=== PATIENT | female | born 1950 | race Caucasian/White ===

== ENCOUNTER 2017-01-29 05:14 | Inpatient (IN) | payer OTHER ==
[2017-01-16 11:36] LABS: HEMATOCRIT 42.8 % (37.0-47.0); HEMOGLOBIN 14.2 gm/dL (12.0-15.0); MCH 29.8 pg (26.0-34.0); MCHC 33.3 g/dL (28.0-37.0); MCV 89.4 fL (80.0-100.0); RBC 4.78 mil/uL (4.20-5.00); RDW 13.2 % (10.5-14.5)
[2017-01-16 11:45] LABS: URINE BILIRUBIN NEGATIVE (Negative); URINE BLOOD NEGATIVE (Negative); URINE COLOR YELLOW; URINE GLUCOSE-RANDOM* NEGATIVE (Negative); URINE KETONES NEGATIVE (Negative); URINE LEUKOCYTES-REFLEX NEGATIVE (Negative); URINE PROTEIN (DIPSTICK) NEGATIVE (Negative); URINE UROBILINOGEN 0.2 E.U./dl (0.2-1.0)
[2017-01-16 11:48] LABS: PROTIME 10.3 Seconds (9.3-11.4)
[2017-01-16 11:51] LABS: CALCIUM 9.7 mg/dL (8.5-10.1); CREATININE 0.9 mg/dL (0.6-1.3); POTASSIUM 4.1 mmol/L (3.5-5.1)
[2017-01-29] VITALS (8 sets, daily range): BP systolic 100–147; BP diastolic 51–89
[~2017-01-29] VITALS: Ht 160 cm; Wt 69.1 kg
--- NOTE | ~2017-01-29 | EKG ---
[address] [address] ELECTROCARDIOGRAM REPORT Name: VIVI RAYMOND Room #: PRE IN [facility]#: [id number] Admission: Attend Phys: Fish Rojas MD Discharge: Date of : 46 Report #: [id number] THIS REPORT FOR: //name// [facility] Test Date: 2017-01-16 Test Time: 10:46:29 Pat Name: VIVI RAYMOND Department: Room: Gender: F Product Marketing Executive: Brenda PERALTA : 1950 Requested By: Fish Rojas Order Number: [id number] MD: Paulino Garcia Measurements Intervals [place] Rate: 76 P: -1 TX: 168 QRS: -23 QRSD: 87 T: 19 QT: 372 QTc: 419 Interpretive Statements Sinus rhythm No significant abnormality No previous ECG available for comparison Electronically Signed On 01-17-2017 8:54:12 CRAB PICKER by Paulino Garcia [email or web address] <ELECTRONICALLY SIGNED> By: Paulino Garcia MD, [facility] 01/17/17 0854 1046 1046 Paulino Garcia MD, FACC /EPI
--- NOTE | ~2017-01-29 | O ---
[facility] [place] [address] OPERATIVE REPORT Name: VIVI RAYMOND Room #: 538-P [facility] IN M.R.#: [id number] Admission: 01/29/17 Attend Phys: Fish Rojas MD Discharge: 01/29/17 Date of : 46 Report #: [id number] THIS REPORT FOR: //name// CC: Jose Rojsa DATE OF SERVICE: 01/29/2017 PREOPERATIVE DIAGNOSIS: Right knee medial compartment osteoarthritis. POSTOPERATIVE DIAGNOSIS: Right knee medial compartment osteoarthritis. PROCEDURE: Right unicompartmental knee arthroplasty. SURGEON: Fish Rojas MD. KNITTED GOODS SHAPER: Jasmin Reid PA-C. ANESTHESIA: LMA with an adductor canal block. IMPLANTS: Biomet [place] twin peg Uni knee, size A tibia, size small femur, and size 6 polyethylene. TOURNIQUET TIME: 70 minutes. ESTIMATED BLOOD LOSS: 25 mL. COMPLICATIONS: None. SPECIMENS: None. CONDITION UPON LEAVING THE OPERATING ROOM: Stable. INDICATIONS FOR PROCEDURE: The patient is a 66-year-old female, who has severe right knee medial compartment osteoarthritis. She had failed conservative treatment for this and after discussion with her, she elected for right unicompartmental knee arthroplasty. DESCRIPTION OF PROCEDURE: Risks, benefits, alternatives, and complications were discussed in detail with the patient, including but not limited to risk of anesthesia, risk of damage to nerves, arteries, blood vessels, risk for infection, bleeding, risk for continued knee pain, and need for reoperation. An informed consent was obtained from the patient. Right knee was appropriately marked in the preoperative holding area. She was brought to the operating room and placed in the supine position on operating room table. IV Ancef was given for preoperative antibiotics. An adductor canal block was placed in the holding [address] [address] OPERATIVE REPORT Name: VIVI RAYMOND Room #: 538-P [facility] IN M.R.#: [id number] Admission: 01/29/17 Attend Phys: Fish Rojas MD Discharge: 01/29/17 Date of : 46 Report #: [id number] area by Anesthesia. LMA anesthesia was induced without complication. Tourniquet was placed on the right thigh. Right lower extremity was prepped and draped in normal sterile fashion. A timeout was performed, properly identifying the patient and procedure, as well as the instrumentation and implants. All in the operating room were in agreement. Right lower extremity was exsanguinated, tourniquet was inflated. Tourniquet time was approximately 70 minutes. A standard approach to the medial compartment was made with #10 blade through the skin. Dissection was taken down sharply to the fascia, and deep flaps were developed medially and laterally. Fresh #10 blade was used to make a medial parapatellar arthrotomy, and the knee was inspected. There was severe medial compartmental osteoarthritis. Lateral compartment and patellofemoral compartments were well maintained. Anterior horn of the medial meniscus was removed sharply, and the tibial resection guide was pinned in place and tibial resection was made. This was sized and found to be of size A. The size A trial was placed and the flexion gap was measured as 6. Intramedullary alignment was used, and drill was used to gain access to the canal of the femur, and intramedullary volodymyr was placed. The femoral guide was then placed using the articulating guided to the intramedullary volodymyr. Drill holes for the femoral component were made. After this, the posterior femoral resection was made, and the zero spigot was placed, and the femur was milled. The flexion gap was then checked, and it was 5 and extension gap was 2. The size 3 spigot was placed, and the femur was milled again. This balanced the flexion and extension gaps well. Anterior osteophyte was removed with the drill. The keel cut for the tibia was made and a keeled tibial trial was placed, femoral trial was placed, and then a size 5 trial was placed, found to be somewhat loose, both in flexion and extension. The size 6 trial had a good fit and balance. Trial components were removed. Bony ends were thoroughly irrigated with normal saline. A final size A tibia, size small twin peg [place] femur were cemented in to place using standard cementation techniques. After the cement cured, this was trialed again with a size 6 polyethylene, and found to have a good balance. A final size 6 polyethylene was placed. A periarticular injection consisting of morphine, ropivacaine, Toradol, and epinephrine was placed around the medial soft tissues. Fascia was closed with 0 Vicryl. Skin was closed with 2-0 Vicryl, 3-0 Monocryl, and Dermabond. Soft dressing of Aquacel was applied. The patient tolerated this procedure well and went to the recovery room under the care of anesthesia postoperatively. <ELECTRONICALLY SIGNED> By: Fish Rojas MD 01/31/17 0728 0926 1112 Fish Rojas MD /nt
[~2017-01-29 05:14] MED LIST: ADVIL100 M2 PO; AMBIEN 5 MG TABL5 M1 PO; AMLODIPINE-BEN1 EAC4 PO; ANASPAZ0.125 MG SUBLING; COLACE100 MG PO; COQ10 SG 100 S1 EACH PO; CRANBERRY400 MG PO; DULCOLAX5 MG PO; FENTANYL PA50 MCG/HR TRANSDERM; FLOMAX0.4 MG PO; FLONASE 0.05%50 MCG NASAL; FLONASE16 GM SPRAY; HYDROCHLOROTHIA25 M1 PO; KLOR-CON 1010 MEQ PO; LINZESS290 MCG PO; LOTREL 5-20 MG1 EACH PO; NORCO 10-325 T1 EACH PO; OMEPRAZOLE 20 M20 M1 PO; ONDANSETRON HCL4 M2 PO; OXYCONTIN10 M1 PO; OXYCONTIN20 M1 PO; OXYCONTIN20 MG PO; PRAVACHOL40 MG PO; RESTASIS1 EACH OPHTHALMIC; ROBAXIN 750 MG750 M1 PO; SIMVASTATIN20 MG PO; TOBRADEX ST EYE5 ML OPHTHALMIC; TRAZODONE HCL50 MG PO; VICODIN 5-5001 EACH PO; VICTOZA0.6 MG/0.1 SUBQ; VITAMIN D32000 UNI1 PO; VITAMIN D35000 UNI1 PO; WELLBUTRIN SR150 MG PO; WELLBUTRIN XL150 M1 PO; ZANAFLEX2 M1 PO
[2017-01-29] MEDS ORDERED: PERCOCET PO (14:09)
[2017-01-29] MEDS ORDERED: MS CONTIN15 MG PO (14:09)
[2017-01-29] MEDS ORDERED: NEURONTIN 300300 M1 PO (14:10)
[2017-01-29] MEDS ORDERED: KEFLEX500 MG PO (14:11)
[2017-01-29] MEDS ORDERED: ULTRA-LIGHT RO1 EACH MC (14:11)
== END 2017-01-29 19:09 | disposition home or self-care (01) | DRG 470 ==
LOC: TBA 05:14 → 5S 05:14 → PRE 11:46 → 5S 19:09
PROVIDERS: Orthopaedic Surgery
PROC: 0SRC0J9 Replacement of Right Knee Joint with Synthetic Substitute, Cemented, Open Approach (ICD-10-PCS; principal; 2017-01-29)
DX: M17.11 Unilateral primary osteoarthritis, right knee (principal); I10 Essential (primary) hypertension; E78.00 Pure hypercholesterolemia, unspecified; K21.9 Gastro-esophageal reflux disease without esophagitis; E11.9 Type 2 diabetes mellitus without complications; E78.5 Hyperlipidemia, unspecified; F32.9 Major depressive disorder, single episode, unspecified; Z87.891 Personal history of nicotine dependence; Z90.710 Acquired absence of both cervix and uterus; Z94.7 Corneal transplant status; Z90.49 Acquired absence of other specified parts of digestive tract; Z98.1 Arthrodesis status; Z98.41 Cataract extraction status, right eye
CPT/HCPCS: 10785; 50010; 50101; 50415; 50612; 51130; 51225; 51771; 52056; 54118; 55262; 56528; 57095; 62110; 62900; 70005

== ENCOUNTER → 2017-07-17 | Outpatient (CLI) | payer OTHER ==
[~2017-07-17] VITALS: Ht 160 cm; Wt 69.4 kg
[~2017-07-17] MED LIST changes: +KEFLEX500 MG PO; +MS CONTIN15 MG PO; +NEURONTIN 300300 M1 PO; +PERCOCET PO; +ULTRA-LIGHT RO1 EACH MC; +VENTOLIN HFA 1818 GM INH
== END ==
LOC: GI 06-12 12:54
DX: Z53.09 Procedure and treatment not carried out because of other contraindication (principal)

== ENCOUNTER → 2018-01-01 | Outpatient (CLI) | payer OTHER ==
[~2018-01-01] VITALS: Ht 160 cm; Wt 66.2 kg
[~2018-01-01] MED LIST changes: +DURAGESIC1 EAC1 TRANSDERM; -FENTANYL PA50 MCG/HR TRANSDERM; +PROAIR HFA8.5 GM INH; +WELLBUTRIN XL300 MG PO; +ZETIA10 MG PO
--- NOTE | ~2018-01-01 | P ---
[facility] [place] [address] PROCEDURE REPORT Name: VIVI RAYMOND Room #: [facility]#: [id number] Admission: 01/01/18 Attend Phys: Charan Ovalles Discharge: Date of : 46 Report #: [id number] THIS REPORT FOR: //name// CC: Jose Graham DATE OF SERVICE: 01/01/2018 PROCEDURE PERFORMED: Upper endoscopy with biopsies. HISTORY OF PRESENT ILLNESS: The patient is a 67-year-old female with nausea and weight loss has been ongoing for approximately a month and a half, no new changes in medications. She denies any dysphagia. She does take Prilosec for reflux, which controls heartburn. Bowel movements have been normal. Colonoscopy last year was normal. She does have a spinal stimulator placed. She is on a fentanyl patch as well as multiple other medications. Plan is for upper endoscopy. PROCEDURE: The risks and benefits of the procedure were explained to the patient, those risks including, but not limited to bleeding, perforation, and the risk of sedation. She understood these risks and gave informed consent. Sedation was given using propofol and ketamine per anesthesia. Next, using a standard AptDecon upper endoscope, the scope was placed in the patient's mouth and advanced under direct vision through the esophagus, stomach and into the second portion of the duodenum. The larynx was normal in appearance. The esophagus was normal throughout. The GE junction was normal. Overall, the gastric mucosa was normal in the fundus. In the mid body, there was a small gastric polyp. This was removed with cold forceps, otherwise normal. There was a mild gastritis noted in the gastric antrum, biopsies were obtained to rule out H. pylori. No evidence of ulcerations or erosions. The pylorus was normal and patent. The duodenal bulb, first and second portion were all normal. Biopsies were also obtained to rule out the possibility of celiac sprue. The scope was then withdrawn and the procedure terminated. The patient tolerated the procedure well. IMPRESSION: 1. Mild gastritis. 2. Small gastric polyp. 3. Otherwise, normal upper endoscopy. RECOMMENDATIONS: 1. Await biopsy results. 2. Recommend a trial of Carafate at this time. If there is no improvement and biopsies are negative, we would consider a gastric emptying study as the patient is on narcotics. If this is abnormal, consider promotility agent such as Reglan [address] [address] PROCEDURE REPORT Name: VIVI RAYMOND [id number] Admission: 01/01/18 Attend Phys: Charan Ovalles Discharge: Date of : 46 Report #: [id number] or erythromycin in the future. Thank you for allowing me to participate in her care. <ELECTRONICALLY SIGNED> By: Charan Graham MD 01/06/18 0907 0835 0855 Charan Graham MD /fabiola
--- NOTE | ~2018-01-01 | S ---
[facility] [place] [address] SURGICAL PATH RPT PROCEDURE Name: PATRICIA RAYMOND Room #: REG EVE Leigh.Chris.#: [id number] Admission: 01/01/18 Date of : 46 Discharge: Report #: [id number] Path Case #: [id number] PATHOLOGY REPORT COLLECTION DATE: 01/01/2018 RECEIVED DATE: 01/01/2018 SUBMITTING PHYS: Dr. Charan Graham OTHER PHYS: Dr. Jose Camara SPECIMEN(S) RECEIVED: A.Bx of duodenum R/O sprue B.Bx of gastritis R/O H pylori C.Bx of gastric polyp * * * * * * * * * * * * FINAL DIAGNOSIS: A. "BX of duodenum r/o sprue", biopsy: - Small bowel / duodenal mucosa with mild reactive changes; no evidence of celiac sprue. B. "BX of gastritis r/o H. pylori", biopsy: - Gastric mucosa with mild reactive changes and minimal chronic inflammation. - Negative H. pylori immunohistochemical stain (block B1); control reacted appropriately. - Scant small bowel mucosa also present. C. "BX of gastric polyp", biopsy: - Gastric hyperplastic polyp with xanthomatous / foamy histiocytic inflammation; no dysplasia seen (see comment). (CLW:laurita; 01/02/2018) COMMENT: Properly controlled immunohistochemical and special stains are performed. Block C1 AE1/AE3 no abnormal staining AFB negative for acid fast organisms PAS-DF negative for pathologic organisms PATHOLOGIST: Jen Enciso M.D. REPORT ELECTRONICALLY SIGNED BY: Jen Enciso M.D. DATE/TIME: 01/03/2018 10:38 * * * * * * * * * * * * GROSS PATHOLOGY: A. Received in formalin labeled "Patricia Raymond, BX duodenum, rule out sprue," are 2 segments of james soft tissue measuring 0.9 x 0.3 x [facility] [address] [place] [address] SURGICAL PATH RPT PROCEDURE Name: PATRICIA RAYMOND Room #: [facility].#: [id number] Admission: 01/01/18 Date of : 46 Discharge: Report #: [id number] Path Case #: [id number] 0.3 cm in aggregate dimensions and ranging from 0.4 to 0.5 cm in maximum dimension. The specimen is submitted entirely in cassette A1. B. Received in formalin labeled "JUSTIN Matthews of gastritis, rule out H. pylori," are 3 segments of james soft tissue measuring 1.6 x 0.5 x 0.3 cm in aggregate dimensions and ranging from 0.2 to 0.5 cm in maximum dimension. The specimen is submitted entirely in cassette B1. C. Received in formalin labeled "JUSTIN Matthews of gastric polyp," is a segment of james soft tissue measuring 0.4 cm in maximum dimension. The specimen is submitted entirely in cassette C1. (TSD; 01/01/2018) CLINICAL HISTORY: Pre-OP DX: Abdominal pain Post-OP DX: Gastric polyp INITIAL CPT CODE(S): A; 73633 B; 05666, 70278 C; 54630, 20965, 25666, 32805 Professional services performed by [facility] at [facility] [address], [place] [address] Technical services performed by [facility] at [address] [place] [address], [facility] [address] [address]. [facility] [address] [place] [address] PHONE: [phone] DIRECTOR: Be Kauffman M.D. * * * END OF REPORT * * *
== END | disposition home or self-care (01) ==
LOC: GI 06:30
DX: K31.7 Polyp of stomach and duodenum (principal); K21.9 Gastro-esophageal reflux disease without esophagitis; Z87.891 Personal history of nicotine dependence; J45.909 Unspecified asthma, uncomplicated; I10 Essential (primary) hypertension; E78.5 Hyperlipidemia, unspecified; Z90.710 Acquired absence of both cervix and uterus; Z90.49 Acquired absence of other specified parts of digestive tract; E11.9 Type 2 diabetes mellitus without complications
CPT/HCPCS: 62110; 62900

== ENCOUNTER → 2018-01-10 | Outpatient (CLI) | payer OTHER | LOC: NUC 08:52 | DX: R11.0 Nausea (principal); R63.4 Abnormal weight loss ==

== ENCOUNTER → 2018-04-21 | Outpatient (CLI) | payer OTHER | LOC: RAD 11:38 | DX: M47.894 Other spondylosis, thoracic region (principal); M47.896 Other spondylosis, lumbar region ==

== ENCOUNTER → 2018-10-14 | Outpatient (CLI) | payer OTHER ==
--- NOTE | ~2018-10-14 | EKG ---
[place] [address] [facility] [place] [address] ELECTROCARDIOGRAM REPORT Name: MARIOMARIALUISAVIVI GRIS Room #: REG CLI Bj#: [id number] Admission: 10/14/18 Attend Phys: Amrita Dangelo, Discharge: Date of : 46 Report #: [id number] THIS REPORT FOR: //name// [facility] Test Date: 2018-10-14 Test Time: 16:23:36 Pat Name: VIVI PACE Department: Room: Gender: F Car Park Attendant: Lu VILLALOBOS : 1950 Requested By: Amrita Dangelo Order Number: [id number] MD: Paulino Garcia Measurements Intervals [place] Rate: 64 P: -1 [place]: 162 QRS: -23 QRSD: 91 T: 6 QT: 417 QTc: 431 Interpretive Statements Sinus rhythm RSR' in V1 or V2, right VCD Borderline T abnormalities, anterior leads Compared to ECG 01/16/2017 10:46:29 T-wave abnormality now present Electronically Signed On 10-15-2018 9:01:43 SENIOR QUALITY TECHNICIAN by Paulino Garcia [email or web address] <ELECTRONICALLY SIGNED> By: Paulino Garcia MD, [facility] 10/15/18 0901 1623 1623 Paulino Garcia MD, [facility] /EPI
== END ==
LOC: LAB 15:24
DX: I10 Essential (primary) hypertension (principal); E11.9 Type 2 diabetes mellitus without complications

== ENCOUNTER → 2019-11-30 | Outpatient (CLI) | payer OTHER, MEDICARE | LOC: RAD 14:27 | DX: M41.86 Other forms of scoliosis, lumbar region (principal); M47.26 Other spondylosis with radiculopathy, lumbar region; M43.27 Fusion of spine, lumbosacral region; M43.16 Spondylolisthesis, lumbar region; M43.17 Spondylolisthesis, lumbosacral region; M12.88 Other specific arthropathies, not elsewhere classified, other specified site; M48.061 Spinal stenosis, lumbar region without neurogenic claudication; M25.78 Osteophyte, vertebrae; Z98.890 Other specified postprocedural states; M53.86 Other specified dorsopathies, lumbar region ==

== ENCOUNTER → 2020-01-11 | Outpatient (CLI) | payer OTHER, MEDICARE ==
[2020-01-11 12:22] LABS: CREATININE 0.9 mg/dL (0.6-1.0)
[2020-01-11 13:39] LABS: APTT 29.6 Seconds (24.5-32.8); PROTIME 10.4 Seconds (9.3-11.4)
== END ==
LOC: RAD 11:26 → CAT 20:11 → RAD 20:13
PROVIDERS: Nurse Practitioner; Radiology Diagnostic Radiology
DX: M48.061 Spinal stenosis, lumbar region without neurogenic claudication (principal); M51.24 Other intervertebral disc displacement, thoracic region; M51.34 Other intervertebral disc degeneration, thoracic region; M41.86 Other forms of scoliosis, lumbar region; M51.26 Other intervertebral disc displacement, lumbar region; Z96.89 Presence of other specified functional implants

== ENCOUNTER → 2020-11-14 | Outpatient (CLI) | payer OTHER, MEDICARE | LOC: LAB 10:26 | PROVIDERS: ATTEND Anesthesiology | DX: Z01.812 Encounter for preprocedural laboratory examination (principal); Z20.828 Contact with and (suspected) exposure to other viral communicable diseases ==